=== PATIENT | female | born 1950 | race Caucasian/White ===

== ENCOUNTER 2016-07-10 05:04 | Inpatient (IN) | payer BC ==
--- NOTE | 2016-06-19 11:53 | History and Physical ---
History & Physical Date Jun 19, 2016. Chief Complaint Left Knee Pain History of Present Illness Sade is a pleasant 66-year-old female who presents for preoperative evaluation prior to a left knee replacement. Patient states that they have been having pain in this knee for many years now, which has gradually worsened, it has now gotten to the point it is affecting her daily activities including walking, standing, going up and down steps. Patient has tried and failed conservative measures including previous cortisone injection, viscosupplementation, bracing, physical therapy, and PO NSAIDs with no relief. At this point in time, patient has failed conservative measures and would like to proceed with a left knee replacement. Past Medical/Surgical History 1. hypertension 2. high cholesterol 3. Atrial Fibrillation 4. h/o mitral regurgitation 5. Diabetes PAST SURGICAL HISTORY 1. liver surgery 1998 2. right and left knee arthroscopies 2006 3. right total hip replacement 2010 Additional History Hypertension: Yes Bleeding Tendencies: No Infectious Diseases: No Allergies Coded Allergies: Penicillins (Verified Allergy, Severe, HIVES OVER ENTIRE BODY, 04/14/09) ENTIRE BODY Adhesives (Verified Allergy, Intermediate, HIVES TO ADHESIVE TAPE, 08/12/06) Clonidine (Verified Allergy, Intermediate, HAS ALLERGY TO "BP PATCH"--RXN = HIVES, 04/14/09) Cefazolin (Verified Allergy, Unknown, 04/14/09) Hydrocodone (Verified Adverse Reaction, Unknown, itching, 08/16/10) Home Medications Scheduled Aspirin (Aspirin Tab-Chewable *), 0 PO UD Calcium (Caltrate), 600 MG PO DAILY Digoxin (Lanoxin), 0.125 MG PO DAILY Ergocalciferol (Vitamin D), 800 INTER.UNIT PO DAILY Fish Oil ([place]-3), 1 CAP PO DAILY Insulin Detmir (Levemir), 28 SC HS Metoprolol Succinate (Toprolxl (Toprol-Xl), 200 MG PO DAILY Oxycodone/Acetaminophen 5MG/325MG (Percocet 5MG/325MG), 1-2 TABLETS PO Q4-6HR PRN Simvastatin (Zocor), 20 MG PO QPM Tolterodine Tartrate (Detrol La *), 4 MG PO PRN Valsartan/Hctz (Diovan Hct 80MG/12.5MG *), 2 TAB PO DAILY Verapamil (Calan), 120 MG PO DAILY Warfarin Sod (Coumadin *), 2 MG PO DAILY [viactiv], 0 PO DAILY [vitamin k], 0 PO UD Physical Examination Skin: warm/dry, no rash Eyes: normal inspection, EOMI, sclerae normal ENT: normal ENT inspection, pharynx normal Head: normocephalic, atraumatic Neck: supple, no adenopathy, trachea midline Respiratory/Chest: lungs clear, normal breath sounds, no respiratory distress Cardiovascular: regular rate, rhythm, no edema Addiitonal Comments: Left Knee Exam Knee ROM L * Active ROM - Flexion: 100 degrees, Extension: 5 degrees, Factors: pain, Description: Active painful ROM. Knee ROM R * Active ROM - Flexion: 100 degrees, Extension: 5 degrees, Factors: pain, Description: Active painful ROM. Strength LE Normal Strength Description - Normal lower extremity: Bilateral. Knee * Inspection - Gait: Limp. Alignment - Right: neutral, Left: neutral. Ecchymosis - Right: negative, Left: negative. Effusion - Right: mild, Left: mild. Swelling - Right: mild, Left: mild. Maximum tenderness - Right: Medial Joint Line, Left: Medial Joint Line. Patella exam - Crepitation - Right: mild, Left: mild. Patella position - Right: neutral, Left: neutral. Knee Normal Inspection - Atrophy - Right: Absent, Left: Absent. Skin - Right: Normal, Left: Normal. Patella exam - Apprehension - Right: Negative, Left: Negative. Q-angle - Right: Normal, Left: Normal. Posterior drawer - Right: Negative, Left: Negative. Anterior drawer - Right: Negative, Left: Negative. Valgus stress - Right: Negative. Varus stress - Right: Negative. Extensor lag - Right: Normal. Neurovascular LE Normal Neurovascular examination including reflexes, sensation , and pulses is within normal limits. Diagnosis Left Knee Osteoarthritis Past medical history as outlined above Plan of Treatment Further care discussed with patient and at this point in time has failed conservative measures and would like to proceed with a left total knee replacement. Plan on discharge will be home with home health physical therapy. DVT prophalaxis with TEDs, SCDs and will also place on aspirin 81 mg p.o. b.i.d. for a month postop. Patient will have follow up appointment in our office two weeks post op for staple/suture removal and re-evaluation. Patient otherwise has no other questions or concerns. Patient will require cardiac clearance prior to TKA
[2016-06-20 08:17] VITALS: BMI 32.0
--- NOTE | 2016-06-20 09:09 | PAT Medication Instructions ---
Service Date Jun 20, 2016. Current Home Medication List Dapagliflozin Propanediol (Farxiga), 5 MG PO QAM Digoxin (Lanoxin), 0.125 MG PO HS Insulin Detmir (Levemir), 60 UNITS SC HS Losartan Potassium (Cozaar), 50 MG PO HS Metformin Hcl (Glucophage), 500 MG PO QAM Metoprolol Succinate (Toprolxl (Toprol-Xl), 200 MG PO HS Simvastatin (Zocor), 40 MG PO HS Tramadol (Ultram), 50 MG PO Q8H PRN for Pain Verapamil (Calan), 240 MG PO HS Warfarin Sod (Coumadin *), 2.5 MG PO M,T,R,F,S,ROSAS Medication Instructions For Your Scheduled Surgery - Check with surgeon/cardiology/family doctor for instructions Warfarin Sod (Coumadin *), 2.5 MG PO M,T,R,F,S,ROSAS - Hold the following medications 48 hours prior to surgery: Metformin Hcl (Glucophage), 500 MG PO QAM - Hold the following medications the morning of surgery: Losartan Potassium (Cozaar), 50 MG PO HS Dapagliflozin Propanediol (Farxiga), 5 MG PO QAM - Take the following medications the morning of surgery with a sip of water: Tramadol (Ultram), 50 MG PO Q8H PRN for Pain (okay to take up to 4 hours prior to surgery if needed) - Take the following medications as scheduled the night before surgery: Simvastatin (Zocor), 40 MG PO HS Metoprolol Succinate (Toprolxl (Toprol-Xl), 200 MG PO HS Digoxin (Lanoxin), 0.125 MG PO HS Verapamil (Calan), 240 MG PO HS Insulin Detmir (Levemir), 60 UNITS SC HS Tramadol (Ultram), 50 MG PO Q8H PRN for Pain If you have any questions please call us at [phone] (Lana Veliz PA-C) or [phone] or [phone]
[2016-06-20 10:32] LABS: URINE APPEARANCE CLEAR (CLEAR); URINE BILIRUBIN NEG (NEG); URINE COLOR YELLOW; URINE NITRITE NEG (NEG); URINE SPECIFIC GRAVITY 1.025 (1.000-1.030); UROBILINOGEN NEG (NEG)
[2016-06-20 10:33] LABS: BASO % 0.3 %; BASO ABS # 0.03 K/uL (0-0.2); COMPLETE YES; EOS % 1.1 %; HEMATOCRIT 42.8 % (37-47); IG% 0.4 %; LYMPH % 27.2 %; MEAN CELL VOLUME 83.6 fL (80-100); MEAN CORPUSCULAR HEMOGLOBIN 28.5 pg (25-34); MEAN CORPUSCULAR HGB CONC 34.1 g/dl (32-36); MONO % 4.8 %; NEUT % 66.2 %; PLATELET COUNT 219 K/uL (130-400); RED BLOOD COUNT 5.12 M/uL (4.2-5.4)
[2016-06-20 10:45] LABS: MANUAL MICROSCOPIC REQUIRED? NO; REVIEW REQ? NO
[2016-06-20 10:50] LABS: INR 2.3 (0.9-1.1); PARTIAL THROMBOPLASTIN RATIO 1.4; PROTHROMBIN TIME (PATIENT) 25.1 SECONDS (9.0-12.0)
[2016-07-10] VITALS (9 sets, daily range): BP systolic 109–171; BP diastolic 60–88; PULSE 51–85; TEMP 36.4–36.5; O2SAT 95–98; Ht 160 cm; Wt 82.1 kg
[~2016-07-10] VITALS: Ht 160 cm; Wt 82.1 kg
[~2016-07-10 05:04] MED LIST: CMD2 PO; DAPA1TAB8 PO; DIGO0.122 PO; GLC/500 PO; INSUINJ12 SC; LOSA50TA6 PO; METO-649 PO; SIMV20TA2 PO; TRAM-10 PO; VERA120T15 PO
[2016-07-10] MEDS ORDERED: LACTATED RINGER'S 500 ML IV SCH (06:00)
[2016-07-10] MEDS ORDERED: GABAPENTIN 300 MG CAP PO SCH (06:00)
[2016-07-10] MEDS ORDERED: ACETAMINOPHEN 500 MG TAB PO SCH (06:00)
[2016-07-10] MEDS ORDERED: VANCOMYCIN INJ 1,250 MG in SODIUM CHLORIDE 0.9% 250ML 250 ML IV SCH (06:00)
[2016-07-10] MEDS ORDERED: LACTATED RINGER'S 1000ML IV SCH ×2 (06:00)
[2016-07-10] MEDS ORDERED: METOCLOPRAMIDE HCL 10 MG TAB PO SCH (06:00)
[2016-07-10] MEDS ORDERED: DEXAMETHASONE 4 MG TAB PO SCH (06:00)
[2016-07-10] MEDS ORDERED: FAMOTIDINE 20 MG TAB PO SCH (06:00)
[2016-07-10] MEDS ORDERED: CeleBREX 200 MG CAP PO SCH (06:00)
[2016-07-10] MEDS ORDERED: ROPIVACAINE 5MG/ML 30 ML 150 MG, BUPIVACAINE/EPINEPHR 0.5% MPF 30 ML, KETOROLAC TROMETH... INFIL SCH ×7 (06:00)
[2016-07-10 06:04] LABS: INR 1.3 (0.9-1.1); PARTIAL THROMBOPLASTIN RATIO 1.2; PROTHROMBIN TIME (PATIENT) 13.8 SECONDS (9.0-12.0)
[2016-07-10] MEDS ORDERED: BUPIVACAINE 0.5 % 5 MG/1 ML PF 10ML VIAL ONE (06:21)
[2016-07-10] MEDS ORDERED: DEXAMETHASONE SOD INJ 4 MG/ML VIAL ONE (06:21)
[2016-07-10] MEDS ORDERED: BUPIVACAINE/EPINEPHRINE 0.25% 1:200,000 30 ML VIAL ONE (06:21)
[2016-07-10] MEDS ORDERED: LIDOCAINE HCL 2% 2 ML VIAL (20MG/ML) ONE ×2 (06:22→07:48)
[2016-07-10] MEDS ORDERED: PROPOFOL IV EMULSION 10 MG/ML 20 ML VIAL IV ONE ×2 (06:22→07:48)
[2016-07-10] MEDS ORDERED: MIDAZOLAM HCL 1 MG/ML 2ML VIAL ONE ×2 (06:23→06:41)
[2016-07-10] MEDS ORDERED: FENTANYL CITRATE INJ 50 MCG/1 ML 2 ML VIAL ONE ×2 (06:23→06:41)
[2016-07-10] MEDS ORDERED: BACITRACIN 50000 UNIT VIAL ONE (06:33)
[2016-07-10] MEDS ORDERED: POVIDONE-IODINE OP SOLN 30 ML BTL ONE (06:33)
[2016-07-10] MEDS ORDERED: ORTHO JOINT ANESTHETIC ONE (06:33)
[2016-07-10] MEDS ORDERED: ONDANSETRON INJ 2 MG/ML 2 ML VIAL IV PRN ×2 (07:00→09:15)
[2016-07-10] MEDS ORDERED: EpHEDrine SULFATE INJ 50 MG/ML AMP IV PRN (07:00)
[2016-07-10] MEDS ORDERED: FENTANYL CITRATE INJ 50 MCG/1 ML 2 ML VIAL IV PRN (07:00)
[2016-07-10] MEDS ORDERED: ATROPINE SULFATE 0.1 MG/ML 5ML SYR IV PRN (07:00)
--- NOTE | 2016-07-10 07:08 | History & Physical Bridge Note ---
H&P Re-Evaluation Bridge Note: I have examined the patient, reviewed the History & Physical and in the interval since the performance of the History & Physical I have noted the following changes of clinical significance: No changes noted
[2016-07-10] MEDS ORDERED: EpHEDrine SULFATE 50MG/5ML SYR ONE (08:03)
--- NOTE | 2016-07-10 08:28 | [facility] Post Operative Brief Note ---
Immediate Operative Summary Operative Date July 10, 2016. Pre-Operative Diagnosis Left Knee Osteoarthritis Post-Operative Diagnosis Left Knee Osteoarthritis Procedure(s) Performed Left Total Knee Arthroplasty Surgeon Dr. Pat Agronomy Instructor Surgeon(s) Jag San Estimated Blood Loss 5ML Findings severe djd lt knee Specimens Permanent Specimen A: Left Knee bone and tissue Complication(s) None Disposition Recovery Room / PACU
--- NOTE | 2016-07-10 09:07 | OPERATIVE REPORT ---
DATE OF ADMISSION: 07/10/2016 PREOPERATIVE DIAGNOSIS: Severe end-stage tricompartmental degenerative joint disease, left knee. POSTOPERATIVE DIAGNOSIS: Severe end-stage tricompartmental degenerative joint disease, left knee. PROCEDURE: Left total knee arthroplasty utilizing Rick \T\ Nephew Journey II nonblock total knee arthroplasty size 3 femur, 3 tibia, 9 poly, and 29 oval patella. SURGEON: Dr. Fco Pat. ASSEMBLER MOVEMENT: Jag Silveira PA-C who was necessary for prepping, draping, retraction, wound closure of deep fascia, subcutaneous and skin and was necessary for the case. ESTIMATED BLOOD LOSS: 5 mL. COMPLICATIONS: None. TOURNIQUET TIME: 45 minutes. HISTORY OF PRESENT ILLNESS: The patient presents as a very pleasant 66-year-old white female with complaints of ongoing pain attributed to her left knee. She has been nonresponsive to conservative therapy including physical therapy, anti-inflammatories, relative rest, activity modification, injections including viscosupplementations as well as corticosteroids. She presents for left total knee arthroplasty after thorough discussion regarding risks and complications. DESCRIPTION OF PROCEDURE: The patient was properly prepped and draped in supine position for total knee arthroplasty after identifying the appropriate surgical site. An anterior midline incision was made through the subcutaneous tissues down to the region of the extensor mechanism. A medial parapatellar incision was subsequently made. Meticulous hemostasis was obtained and performed at all times. The patella having been subluxed lateralward, medial and lateral meniscal remnants were excised. The patellar cut was then initially made and was sized to the appropriate size. After subluxing the tibia forward the appropriate meniscal fragments having been removed the distal femur was then cut first utilizing a Rick and Nephew block. The distal femoral cuts and chamfer cuts were all made under direct visualization and the proximal tibial osteotomy cut was also made utilizing Rick and Nephew blocks and checked with an extramedullary guide. The appropriate trial components on the femur and tibia were placed. Appropriate trial spacers were used to check flexion and extension gaps. With flexion and extension gaps being equal, the components were then subsequently after thorough irrigation and debridement lavage components were then subsequently cemented in the following order: femur, tibia and patella. Exparel was used for intraoperative anesthesia, the medial parapatellar incision was closed utilizing #1 Vicryl, subQ was closed with 2-0 Vicryl, skin was closed with skin clips. A sterile compression dressing was placed. The patient was taken to recovery room in stable condition. Due to the complex nature of the procedure, the entire surgery was performed with the operational assistance of Jag Silveira PA-C. The administrative assistant front desk, under direct supervision, was involved in the actual performance of all aspects of the surgical procedure including hemostasis, tissue retraction and incision, instrument management, patient positioning, and wound closure. I attest to the content of the Intraoperative Record and any orders documented therein. Any exceptions are noted below. CYDNEY
[2016-07-10] MEDS ORDERED: MAGNESIUM HYDROXIDE SUSP 30 ML UDC PO PRN (09:15)
[2016-07-10] MEDS ORDERED: ALUMINUM/MAGNESIUM/SIMETH (MAALOX MAX) 30 ML UDC PO PRN (09:15)
[2016-07-10] MEDS ORDERED: MoRPHine SULFATE 2 MG/ML CARP IV PRN (09:15)
[2016-07-10] MEDS ORDERED: ZOLPIDEM TARTRATE 5 MG TAB PO PRN (09:15)
[2016-07-10] MEDS ORDERED: SOD PHOSPHATE/SOD BIPHOSPHATE ENEMA 132 ML BTL PR PRN (09:15)
[2016-07-10] MEDS ORDERED: BISACODYL 10 MG SUPP PR PRN (09:15)
--- NOTE | 2016-07-10 09:23 | Anesthesiology Progress Note ---
Anesthesia Post Op Note Date & Time July 10, 2016 at 09:23 Vital Signs Pain Intensity: 0 Vital Signs Past 12 Hours Date Time Temp Pulse Resp B/P Pulse Ox O2 Delivery O2 Flow Rate FiO2 07/10/16 09:14 36.2 63 12 121/70 97 Nasal Cannula 2 07/10/16 05:45 36.5 59 18 171/87 98 Room Air Notes Mental Status: alert / awake / arousable, participated in evaluation Pt Amnestic to Procedure: Yes Nausea / Vomiting: adequately controlled Pain: adequately controlled Airway Patency, RR, SpO2: stable & adequate BP & HR: stable & adequate Hydration State: stable & adequate Neuraxial Anesthesia: was administered, sensory block is resolving Anesthetic Complications: no major complications apparent
--- NOTE | 2016-07-10 09:52 | DIAGNOSTIC IMAGING REPORT ---
LEFT KNEE 1 OR 2 VIEWS ROUTINE CLINICAL HISTORY: AP/LATERAL IN PACU LEFT KNEE joint replacement COMPARISON: None. DISCUSSION: Anatomic alignment status post total left knee replacement. Good contact between prosthetic and underlying bone. Surgical drains are in position. IMPRESSION: Anatomic alignment status post total left knee replacement. Electronically signed by: Jag Pimentel M.D. 07/10/2016 9:51 AM Dictated Date/Time: 07/10/2016 9:50 AM
[2016-07-10] MEDS ORDERED: MoRPHine SULFATE 10 MG/ML CARP/VIAL IV PRN (11:00)
[2016-07-10] MEDS ORDERED: PHARMACY GLYCEMIC MGMT CONSULT PRN (11:00)
--- NOTE | 2016-07-10 11:12 | Pharmacy Progress Note ---
Glycemic Control Intl Consult Date of Service July 10, 2016. Scope Glycemic Pharmacist consulted by Jag Silveira PA-C on 07/10/16 for glycemic control and to write orders per [facility] inpatient glycemic control protocol Objective Weight (Kilograms): 82.100 Accuchecks BSG (last 24hrs): Test 07/10/16 05:43 07/10/16 09:17 Bedside Glucose 182 mg/dl (70-90) 189 mg/dl (70-90) Recent Pertinent Medications Outpatient Anti-diabetic Regimen: * Levemir 60 units HS * Metformin 500 mg PO QAM * A1c unknown Risk Factors for Insulin Resistance: * Steroids: Preop PO Dexamethasone X 1+ Intraop IV Dexamethasone X 1 * Infection: Pre/Post op ABX * Recent Surgery: POD #0 * Diet: DM2 Assessment & Plan ASSESSMENT: * 66 yo diabetic F admitted s/p L knee surgery, POD #0 * Pt is maintained on oral antidiabetic agents + Levemir as an outpatient * Oral agents are not recommended for inpatient use d/t drug interactions, changing PO intake, and difficulty titrating for acute hyper/hypoglycemia. ADA recommends re-initiating outpatient oral agents 1-2 days prior to discharge if/ when appropriate if they were held on admission. * Will hold oral agents for admission and utilize SQ basal bolus insulin regimen based on outpatient Levemir dose * This evaluation is also in line with weight-based dosing/stress of 3 which is common for steroid use * A1c unknown so unable to assess outpatient control, order for tomorrow AM * ADA & AACE recommend a goal blood sugar range 140-180 mg/dl for the majority of critically ill & non-critically ill patients. However, more stringent targets may be selected in individual cases. Tighten goal range to 110 - 150 mg/ dL to facilitate better wound healing. PLAN FOR INPATIENT GLYCEMIC CONTROL: * Hold outpatient oral diabetes medications * Basal insulin with Levemir 40 units SQ HS * In case this is a low evaluation, add 00,04 checks * Correctional Insulin with NOVOLOG per scale ACHS or Q6hrs while NPO + 00,04 checks * Goal Range: Low 110 mg/dL - High 150 mg/dL * Correction Factor: 20 mg/dL/unit * Nutritional / Prandial insulin per carb ratio of 1 unit per 7 grams CHO consumed * A1c added with AM labs * Please note that the plan above was derived based on current level of insulin resistance and hospital stress. These recommendations are appropriate for inpatient admission only. Plan of care upon discharge will need to be reassessed to avoid potential outpatient hypo/hyperglycemia. Thank you.
[2016-07-10] MEDS: SODIUM CHLORIDE 0.9% 1000ML 1,000 ML IV SCH ×2 (11:14→20:53)
[2016-07-10] MEDS ORDERED: GLUCOSE 10 TABS/TUBE PO PRN (11:15)
[2016-07-10] MEDS ORDERED: GLUCOSE 40% GEL 15 GM TUBE PO PRN (11:15)
[2016-07-10] MEDS ORDERED: GLUCAGON FOR INJ 1 MG VIAL SQ PRN (11:15)
[2016-07-10] MEDS ORDERED: DEXTROSE 50% 50 ML SYR IV PRN (11:15)
[2016-07-10] MEDS: INSULIN ASPART 100 UNITS/ML 3 ML PEN SC SCH ×4 (12:24→23:55)
[2016-07-10] MEDS: CLINDAMYCIN IV 600 MG in DEXTROSE 5% ADD-VANTAGE 50ML 50 ML IV SCH ×2 (13:29→21:39)
[2016-07-10] MEDS ORDERED: WARFARIN SOD 2.5 MG TAB PO ONE (16:00)
[2016-07-10] MEDS: ACETAMINOPHEN 500 MG TAB PO SCH ×2 (16:32→23:49)
[2016-07-10] MEDS: TRAMADOL HCL 50 MG TAB PO PRN ×2 (18:44→22:49)
[2016-07-10] MEDS: SIMVASTATIN 20 MG TAB PO SCH (20:46)
[2016-07-10] MEDS: LOSARTAN POTASSIUM 50 MG TAB PO SCH (20:46)
[2016-07-10] MEDS: DIGOXIN 0.125 MG TAB PO SCH (20:47)
[2016-07-10] MEDS: SENNA 8.6 MG TAB PO SCH (20:47)
[2016-07-10] MEDS: DOCUSATE SODIUM 100 MG CAP PO SCH (20:47)
[2016-07-10] MEDS: INSULIN DETEMIR FLEXPEN/FLEX TOUCH 100 UNITS/ML 3ML SC SCH (20:51)
[2016-07-10] MEDS ORDERED: METOPROLOL SUCC 50MG EXT REL TAB PO SCH (21:00)
[2016-07-10] MEDS ORDERED: NURSING VERBAL MED ORDER ONE (21:15)
[2016-07-10] MEDS: METOPROLOL SUCC 50MG EXT REL TAB PO SCH (21:39)
[2016-07-11 03:30] VITALS: BP 131/60; PULSE 79; TEMP 36.8; O2SAT 96
[2016-07-11] MEDS: INSULIN ASPART 100 UNITS/ML 3 ML PEN SC SCH ×5 (04:09→21:00)
[2016-07-11] MEDS: TRAMADOL HCL 50 MG TAB PO PRN ×4 (05:03→21:28)
[2016-07-11] MEDS: SODIUM CHLORIDE 0.9% 1000ML 1,000 ML IV SCH (06:16)
[2016-07-11 06:18] LABS: MEAN CELL VOLUME 85.2 fL (80-100); MEAN CORPUSCULAR HEMOGLOBIN 28.6 pg (25-34); MEAN CORPUSCULAR HGB CONC 33.5 g/dl (32-36); MEAN PLATELET VOLUME 11.7 fL (7.4-10.4); PLATELET COUNT 186 K/uL (130-400); RED BLOOD COUNT 3.99 M/uL (4.2-5.4); WHITE BLOOD COUNT 18.65 K/uL (4.8-10.8)
[2016-07-11 06:38] LABS: INR 1.2 (0.9-1.1); PROTHROMBIN TIME (PATIENT) 12.9 SECONDS (9.0-12.0)
[2016-07-11 06:50] LABS: BUN/CREATININE RATIO 18.7 (10-20); CALCIUM 8.3 mg/dl (8.5-10.1); CREATININE 0.82 mg/dl (0.60-1.20); POTASSIUM 3.9 mmol/L (3.5-5.1)
[2016-07-11 07:04] LABS: ESTIMATED AVERAGE GLUCOSE 171 mg/dl; HA1C FLAG Normal (Normal)
[2016-07-11 07:15] VITALS: BP 134/77; PULSE 77; TEMP 36.5; O2SAT 96
--- NOTE | 2016-07-11 07:59 | Orthopedic Progress Note ---
Orthopedic Progress Note Date of Service July 11, 2016. Subjective Post OP Day: 1 Reports: feeling well (Per pt and NS, pt unable to bear weight on leg without knee buckling. Pt denies a fall since surgery) Objective N/V intact, dressing C/D/I (Hemovac in place), toes mobile Date Time Temp Pulse Resp B/P Pulse Ox O2 Delivery O2 Flow Rate FiO2 07/11/16 03:30 36.8 79 16 131/60 96 Room Air 07/10/16 23:10 36.4 85 16 141/88 97 Room Air 07/10/16 22:25 Room Air 07/10/16 20:47 79 07/10/16 20:40 36.4 79 16 146/81 97 07/10/16 16:30 Nasal Cannula 2.0 07/10/16 15:28 36.4 63 16 126/78 97 Nasal Cannula 1.5 07/10/16 13:30 65 16 109/60 96 07/10/16 12:00 60 16 124/73 98 07/10/16 11:00 54 15 142/82 97 07/10/16 10:30 51 15 131/85 98 07/10/16 10:00 36.4 60 16 110/70 95 Nasal Cannula 2.0 07/10/16 10:00 95 Nasal Cannula 2.0 07/10/16 10:00 95 Nasal Cannula 2.0 07/10/16 09:40 36.2 65 16 119/69 97 Nasal Cannula 2 07/10/16 09:30 61 14 117/73 97 Nasal Cannula 2 07/10/16 09:20 62 14 131/76 97 Nasal Cannula 2 07/10/16 09:14 36.2 63 12 121/70 97 Nasal Cannula 2 Laboratory Results 24 Hours: Test 07/11/16 05:25 Hematocrit 34.0 % Hemoglobin 11.4 g/dL Prothromb Time International Ratio 1.2 Prothrombin Time 12.9 SECONDS Assessment & Plan Assessment: 66 yo female POD #1 s/p left TKA, difficulty bearing weight without the knee buckling Plan: 1. Med management 2. DVT prophylaxis- resume regular Coumadin use, TEDs, SCDs 3. PT/OT- will order knee immobilizer to see if that improves weightbearing, if continued trouble will order xray 4. D/C planning- home w/ HH
[2016-07-11] MEDS: ACETAMINOPHEN 500 MG TAB PO SCH ×3 (08:17→23:37)
[2016-07-11] MEDS: MULTIVITAMIN TAB PO SCH (08:17)
[2016-07-11] MEDS: DOCUSATE SODIUM 100 MG CAP PO SCH ×2 (08:17→20:55)
[2016-07-11] MEDS: PANTOprazole SOD 40 MG TAB PO SCH (08:17)
[2016-07-11] MEDS ORDERED: CeleBREX 200 MG CAP PO SCH (09:00)
--- NOTE | 2016-07-11 10:38 | Pharmacy Progress Note ---
Glycemic Control: Progress Nt Date of Service July 11, 2016. Scope Glycemic Pharmacist consulted by Jag Silveira PA-C on 07/10/16 for glycemic control and to write orders per [facility] inpatient glycemic control protocol. Objective Accuchecks BSG (last 24hrs): Test 07/10/16 12:02 07/10/16 17:11 07/10/16 20:34 07/10/16 23:49 Bedside Glucose 214 mg/dl (70-90) 260 mg/dl (70-90) 270 mg/dl (70-90) 245 mg/dl (70-90) Test 07/11/16 04:07 07/11/16 05:25 07/11/16 08:16 Bedside Glucose 188 mg/dl (70-90) 191 mg/dl (70-90) Random Glucose 186 mg/dl (70-99) Laboratory Data (last 24hrs) Test 07/11/16 05:25 Anion Gap 9.0 mmol/L BUN/Creatinine Ratio 18.7 Blood Urea Nitrogen 15 mg/dl Creatinine 0.82 mg/dl Hemoglobin A1c 7.6 % Potassium Level 3.9 mmol/L Sodium Level 140 mmol/L White Blood Count 18.65 K/uL HbA1c: Test 07/11/16 05:25 Hemoglobin A1c 7.6 % (4.5-5.6) H Recent Pertinent Medications Outpatient Anti-diabetic Regimen: * Levemir 60 units HS * Metformin 500 mg PO QAM Risk Factors for Insulin Resistance: * Steroids: Preop PO Dexamethasone X 1+ Intraop IV Dexamethasone X 1 * Recent Surgery: POD #1 * Diet: DM2 Assessment & Plan ASSESSMENT: * 66 yo diabetic F admitted s/p L knee surgery, POD #1 * Pt is maintained on oral antidiabetic agents + Levemir as an outpatient * Oral agents are not recommended for inpatient use d/t drug interactions, changing PO intake, and difficulty titrating for acute hyper/hypoglycemia. ADA recommends re-initiating outpatient oral agents 1-2 days prior to discharge if/ when appropriate if they were held on admission. * A1c 7.6% from this morning indicative of adequate glycemic control as outpatient * Continue to hold oral agents for admission and utilize SQ basal bolus insulin regimen based on outpatient Levemir dose * Effects from dexamethasone should start to dissipate over the next 24 hours but patient's BSGs still above goal range. Tighten Novolog further and reassess in the AM. * ADA & AACE recommend a goal blood sugar range 140-180 mg/dl for the majority of critically ill & non-critically ill patients. However, more stringent targets may be selected in individual cases. Tighten goal range to 110 - 150 mg/ dL to facilitate better wound healing. PLAN FOR INPATIENT GLYCEMIC CONTROL: * Hold outpatient oral diabetes medications * Continue Basal insulin with Levemir 40 units SQ HS * Correctional Insulin with NOVOLOG per scale ACHS * Goal Range: Low 110 mg/dL - High 150 mg/dL * Correction Factor: 15 mg/dL/unit * Nutritional / Prandial insulin per carb ratio of 1 unit per 6 grams CHO consumed * A1c added to D/C instructions * Please note that the plan above was derived based on current level of insulin resistance and hospital stress. These recommendations are appropriate for inpatient admission only. Plan of care upon discharge will need to be reassessed to avoid potential outpatient hypo/hyperglycemia. Thank you.
--- NOTE | 2016-07-11 10:39 | Anesthesiology Progress Note ---
Anesthesia Post Op Note Date & Time July 11, 2016 at 10:39 Vital Signs Pain Intensity: 0.0 Vital Signs Past 12 Hours Date Time Temp Pulse Resp B/P Pulse Ox O2 Delivery O2 Flow Rate FiO2 07/11/16 07:20 Room Air 07/11/16 07:15 36.5 77 16 134/77 96 Room Air 07/11/16 03:30 36.8 79 16 131/60 96 Room Air 07/10/16 23:10 36.4 85 16 141/88 97 Room Air Notes Neuraxial Anesthesia: sensory block resolved
[2016-07-11 12:55] VITALS: BP 112/67; PULSE 87; TEMP 36.5; O2SAT 100
--- NOTE | 2016-07-11 13:29 | Discharge Instructions ---
Discharge Instructions Date of Service July 11, 2016. Admission Reason for Admission: Left Knee Osteoarthritis Discharge Discharge Diagnosis / Problem: Left Total Knee Replacement Discharge Goals Goal(s): Decrease discomfort, Improve function, Increase independence Activity Recommendations Activity Limitations: as noted below Weightbearing Status: Left weightbearing (as tolerated) . Instructions / Follow-Up Instructions / Follow-Up ACTIVITY RECOMMENDATIONS: SELF CARE INSTRUCTIONS AFTER TOTAL KNEE REPLACEMENT A. You may need to continue a physical therapy program after discharge from the hospital. There are several options available to you. Your doctor will assist you in selecting the best one for you. 1. An out-patient facility 2 to 3 times a week for therapy or home therapy. 2. Continue working on all exercises taught to you in the hospital. Your goals should be to increase bending of your knee to 90 degrees and beyond and to fully straighten your knee. B. You may progress at your own pace from walking with a walker or crutches to a cane; then to no assistive devices. C. Make walking a part of your daily routine. Be up as much as comfortable with rest periods throughout the day. Rest with leg elevation is very important. Use the ice wrap frequently for the first 3-4 weeks. D. There are no restrictions on activities. You may ride in a car, shop, participate in roller inspector and mender and all social activities. E. Wear the long elastic stockings (ROHINI hose) 20 hours a day for 2 weeks after surgery. They can be removed several times a day for laundering and for a bath. F. You may shower, no tub baths until cleared by your doctor. SPECIAL CARE INSTRUCTIONS: VERY IMPORTANT TO READ AND REVIEW A. There are a few signs you need to watch for after you are home. Call [facility] [place] if you notice any of the followin. Increased severe knee pain. Some pain is expected especially when you exercise. 2. Increased swelling in your leg or knee; pain or swelling of the calf muscle in either lower leg. 3. Any fluid drainage from the incision. 4. Shortness of breath or chest pain. B. Please call [facility] at if you have any concerns or questions about your operation or recovery. The doctor or his nurse will return your call promptly. C. You must take antibiotics before dental work, bladder, bowel or other surgery. Your doctor will provide you with a permanent care to carry describing this precaution. IMPORTANT: * REMEMBER TO TAKE ASPIRIN, 81 MG, TWICE DAILY FOR 4 WEEKS UNLESS OTHERWISE DIRECTED. THIS IS YOUR BLOOD THINNER. * HIGH RISK PATIENTS MAY BE PRESCRIBED A STRONGER BLOOD THINNER. THIS WILL BE PROVIDED AT DISCHARGE. * CALL IF INCREASED PAIN, REDNESS, DRAINAGE OR FEVER GREATER THAT 101. * WEAR ROHINI HOSE 20 HOURS PER DAY FOR 2 WEEKS. * DERMABOND Prineo- This is a mesh tape dressing that is covered with glue. It should remain in place until the incision is properly healed, usually 10-14 days. This dressing is designed to naturally slough off. You may trim the excess mesh tape as it peels off. Incision may be briefly wet in a shower. Dry immediately by blotting with a clean, dry towel. Do not bath or swim until instructed by your doctor. Do not scratch, rub, or pick at the dressing. Do not apply any topical ointments or lotions until dressing is completely removed and/or instructed by your doctor. There may be a small piece of suture material at one end of your incision. Do not pull or trim this. If it is bothersome or catching on clothing, you may cover it with a band-aid. FOLLOW UP VISIT: If appointment is not already scheduled: Please call [facility] [place] to make a follow-up appointment for 2 weeks after your surgery at . Current Hospital Diet Patient's current hospital diet: Diabetes Type 2 Diet Discharge Diet Recommended Diet: Diabetes Type 2 Diet Procedures Procedures Performed: Left Total Knee Arthroplasty Pending Studies Studies pending at discharge: no Laboratory Results Hemoglobin A1c Test 07/11/16 05:25 Range/Units Estimated Average Glucose 171 mg/dl Hemoglobin A1c 7.6 H 4.5-5.6 % Medical Emergencies . Who to Call and When: Medical Emergencies: If at any time you feel your situation is an emergency, please call 911 immediately. . Non-Emergent Contact Non-Emergency issues call your: Primary Care Provider, Surgeon . "Provider Documentation" section prepared by Jag Silveira. . VTE Core Measure Inpt VTE Proph given/why not?: Warfarin (Coumadin), Neela Huang, SCD's [place] Drug Monitoring Program Search Results: patient reviewed within database, no issues identified
[2016-07-11] MEDS: KETOROLAC TROMETHAMINE 15 MG/ML VIAL IV PRN (14:59)
[2016-07-11 15:06] VITALS: BP 146/84; PULSE 61; TEMP 36.5; O2SAT 97
[2016-07-11] MEDS: MoRPHine SULFATE 4 MG/ML 1 ML CARP\\VIAL IV PRN ×2 (15:30→21:53)
[2016-07-11 15:45] VITALS: O2SAT 97
[2016-07-11] MEDS ORDERED: WARFARIN SOD 5 MG TAB PO SCH (16:00)
[2016-07-11] MEDS: SENNA 8.6 MG TAB PO SCH (20:55)
[2016-07-11] MEDS: SIMVASTATIN 20 MG TAB PO SCH (20:55)
[2016-07-11] MEDS: METOPROLOL SUCC 50MG EXT REL TAB PO SCH (20:56)
[2016-07-11] MEDS: DIGOXIN 0.125 MG TAB PO SCH (20:58)
[2016-07-11] MEDS: LOSARTAN POTASSIUM 50 MG TAB PO SCH (20:58)
[2016-07-11] MEDS: INSULIN DETEMIR FLEXPEN/FLEX TOUCH 100 UNITS/ML 3ML SC SCH (21:00)
[2016-07-11 23:01] VITALS: BP 155/84; PULSE 72; TEMP 36.7; O2SAT 97
[2016-07-12] MEDS: TRAMADOL HCL 50 MG TAB PO PRN ×4 (01:23→19:54)
[2016-07-12 06:02] VITALS: BP 153/86; PULSE 60
[2016-07-12 06:48] LABS: INR 1.6 (0.9-1.1); PROTHROMBIN TIME (PATIENT) 17.6 SECONDS (9.0-12.0)
--- NOTE | 2016-07-12 07:07 | Orthopedic Progress Note ---
Orthopedic Progress Note Date of Service July 12, 2016. Subjective Post OP Day: 2 Reports: pain controlled w PO medications, Denies: SOB, calf pain, chest pain, complaints, light headedness, nausea / vomiting Additional Notes: states she had episode last evening she woke up and didn't now where she was, attributes this to the morphine. currently doing well Objective calves soft nontender, N/V intact, capillary refill less than 2 sec., incision C /D/I, A&O x3, toes mobile top part of prinea dressing is off, reinforced with steri strips. no drainage, no erythema. expected bruising noted along medial knee joint. Date Time Temp Pulse Resp B/P Pulse Ox O2 Delivery O2 Flow Rate FiO2 07/12/16 06:02 60 153/86 07/11/16 23:30 Room Air 07/11/16 23:01 36.7 72 14 155/84 97 Room Air 07/11/16 20:58 66 07/11/16 15:45 97 Room Air 07/11/16 15:06 36.5 61 17 146/84 97 Room Air 07/11/16 12:55 36.5 87 16 112/67 100 Room Air 07/11/16 07:20 Room Air 07/11/16 07:15 36.5 77 16 134/77 96 Room Air Laboratory Results 24 Hours: Test 07/12/16 05:40 Prothromb Time International Ratio 1.6 Prothrombin Time 17.6 SECONDS Assessment & Plan Assessment: 66 yo female POD #2 s/p left TKA, difficulty bearing weight without the knee buckling, was using immobilizer yesterday while ambulating, seems a little better during evening, will trial without it today during PT Plan: 1. Med management 2. DVT prophylaxis- resume regular Coumadin use, TEDs, SCDs 3. PT/OT 4. D/C planning- home w/ HH Discharge Planning Discharge Planning: home with home health DVT Prophylaxis: TEDs, SCDs, ASA Therapy: Physical Therapy
[2016-07-12 07:18] VITALS: BP 150/81; PULSE 62; TEMP 36.5; O2SAT 99
[2016-07-12] MEDS: ACETAMINOPHEN 500 MG TAB PO SCH ×3 (08:00→23:13)
[2016-07-12] MEDS: MULTIVITAMIN TAB PO SCH (08:47)
[2016-07-12] MEDS: PANTOprazole SOD 40 MG TAB PO SCH (08:47)
[2016-07-12] MEDS: DOCUSATE SODIUM 100 MG CAP PO SCH ×2 (08:47→20:48)
[2016-07-12] MEDS: INSULIN ASPART 100 UNITS/ML 3 ML PEN SC SCH ×4 (08:52→20:56)
[2016-07-12] MEDS: KETOROLAC TROMETHAMINE 15 MG/ML VIAL IV PRN ×2 (08:53→16:40)
--- NOTE | 2016-07-12 09:43 | Pharmacy Progress Note ---
Glycemic Control: Progress Nt Date of Service July 12, 2016. Scope Glycemic Pharmacist consulted by Jag Silveira PA-C on 07/10/16 for glycemic control and to write orders per [facility] inpatient glycemic control protocol. Objective Accuchecks BSG (last 24hrs): Test 07/11/16 12:10 07/11/16 17:03 07/11/16 20:41 07/12/16 08:21 Bedside Glucose 233 mg/dl (70-90) 201 mg/dl (70-90) 148 mg/dl (70-90) 188 mg/dl (70-90) HbA1c: Test 07/11/16 05:25 Hemoglobin A1c 7.6 % (4.5-5.6) H Recent Pertinent Medications Outpatient Anti-diabetic Regimen: * Levemir 60 units SQ HS * Metformin 500mg PO QAM * Farxiga 5mg PO QAM The patient is currently receiving: * Basal insulin: Levemir 40 units every 24 hours given at bedtime * Correctional Insulin: Novolog Correction per scale ACHS Goal Range: Low 110 mg/dL - High 150 mg/dL Correction Factor: 15 mg/dL/unit * Prandial insulin: Per carb ratio of 1 unit per 6 grams CHO consumed * Oral Agents: On hold for admission Risk Factors for Insulin Resistance: * Steroids pre-op and intraop * Recent Surgery * Diet Assessment & Plan ASSESSMENT: * Pt is maintained on oral antidiabetic agents + Levemir as an outpatient * Oral agents are not recommended for inpatient use d/t drug interactions, changing PO intake, and difficulty titrating for acute hyper/hypoglycemia. ADA recommends re-initiating outpatient oral agents 1-2 days prior to discharge if/ when appropriate if they were held on admission. * Continue to hold oral agents for admission and utilize SQ basal bolus insulin regimen based on outpatient Levemir dose. Titrate dosing daily based on BSG trends * Effects from dexamethasone should be minimal at this point * AM fasting BSG is above goal --> current basal insulin dosing is less than ordered outpatient dosing, will increase dose and continue to titrate to achieve an AM fasting BSG < 140mg/dl * Post-prandial BSGs elevated and rise throughout the day --> will tighten CR for most prandial coverage * ADA & AACE recommend a goal blood sugar range 140-180 mg/dl for the majority of critically ill & non-critically ill patients. However, more stringent targets may be selected in individual cases. Will utilize more stringent goal of 110-140mg/dl based on patient age & comorbidities. Additionally, tighter glycemic control is warranted to facilitate healing post-operatively. PLAN FOR INPATIENT GLYCEMIC CONTROL: * Hold outpatient oral diabetes medications * INCREASE Basal insulin with Levemir 50 units SQ HS (outpatient dosing is 60 units) * NOVOLOG per scale ACHS * LOWER Goal Range: Low 110 mg/dL - High 140 mg/dL * Correction Factor: 15 mg/dL/unit * TIGHTEN Nutritional / Prandial insulin per carb ratio of 1 unit per 5 grams CHO consumed * A1c added to D/C instructions to be communicated to PCP RECOMMENDATIONS FOR DISCHARGE: * A1c = 7.6% from 07/11/16 indicative of adequate glycemic control as outpatient. May continue previous outpatient regimen at discharge. * Please note that the plan above was derived based on current level of insulin resistance and hospital stress. These recommendations are appropriate for inpatient admission only. Plan of care upon discharge will need to be reassessed to avoid potential outpatient hypo/hyperglycemia. Thank you.
[2016-07-12 15:41] VITALS: BP 155/83; PULSE 65; TEMP 37.1; O2SAT 98
[2016-07-12] MEDS ORDERED: WARFARIN SOD 2 MG TAB PO SCH (16:00)
[2016-07-12] MEDS: MoRPHine SULFATE 4 MG/ML 1 ML CARP\\VIAL IV PRN (17:46)
[2016-07-12 20:45] VITALS: BP 123/69; PULSE 66; O2SAT 97
[2016-07-12] MEDS: LOSARTAN POTASSIUM 50 MG TAB PO SCH (20:48)
[2016-07-12] MEDS: DIGOXIN 0.125 MG TAB PO SCH (20:49)
[2016-07-12] MEDS: SENNA 8.6 MG TAB PO SCH (20:50)
[2016-07-12] MEDS: SIMVASTATIN 20 MG TAB PO SCH (20:51)
[2016-07-12] MEDS: METOPROLOL SUCC 50MG EXT REL TAB PO SCH (20:51)
[2016-07-12] MEDS ORDERED: INSULIN DETEMIR FLEXPEN/FLEX TOUCH 100 UNITS/ML 3ML SC SCH (21:00)
[2016-07-12] MEDS ORDERED: VERAPAMIL HCL 240 MG TABCR PO SCH (21:00)
[2016-07-12 23:08] VITALS: BP 123/74; PULSE 72; TEMP 36.4; O2SAT 96
[2016-07-13] MEDS: TRAMADOL HCL 50 MG TAB PO PRN ×2 (05:34→12:14)
[2016-07-13 06:30] VITALS: BP 145/78; PULSE 58; TEMP 36.4; O2SAT 96
[2016-07-13 06:32] LABS: INR 1.7 (0.9-1.1); PROTHROMBIN TIME (PATIENT) 18.7 SECONDS (9.0-12.0)
--- NOTE | 2016-07-13 07:29 | Orthopedic Progress Note ---
Orthopedic Progress Note Date of Service July 13, 2016. Subjective Post OP Day: 3 Reports: feeling well, pain controlled w PO medications, Denies: SOB, chest pain , complaints, light headedness, nausea / vomiting Objective calves soft nontender, N/V intact, dressing C/D/I, A&O x3, toes mobile Date Time Temp Pulse Resp B/P Pulse Ox O2 Delivery O2 Flow Rate FiO2 07/13/16 06:30 36.4 58 14 145/78 96 Room Air 07/12/16 23:08 36.4 72 15 123/74 96 Room Air 07/12/16 20:49 65 07/12/16 20:45 66 123/69 97 Room Air 07/12/16 19:54 Room Air 07/12/16 15:45 Room Air 07/12/16 15:41 37.1 65 16 155/83 98 Room Air 07/12/16 07:30 Room Air Laboratory Results 24 Hours: Test 07/13/16 05:19 Prothromb Time International Ratio 1.7 Prothrombin Time 18.7 SECONDS Assessment & Plan Assessment: 66 yo female POD #3 s/p left TKA feeling well today with some pain in her left knee. She did well yesterday with PT Plan: 1. Med management 2. DVT prophylaxis- resume regular Coumadin use, TEDs, SCDs 3. PT/OT 4. D/C planning- home w/ HH Discharge Planning Discharge Planning: home with home health DVT Prophylaxis: TEDs, SCDs, ASA Therapy: Physical Therapy
[2016-07-13] MEDS ORDERED: OXYSR10 PO (07:33)
[2016-07-13] MEDS ORDERED: RXC5 PO ×2 (07:33→07:48)
[2016-07-13 08:16] VITALS: BP 135/82; PULSE 66; TEMP 36.5; O2SAT 98
[2016-07-13] MEDS: ACETAMINOPHEN 500 MG TAB PO SCH (08:20)
[2016-07-13] MEDS: MULTIVITAMIN TAB PO SCH (08:21)
[2016-07-13] MEDS: DOCUSATE SODIUM 100 MG CAP PO SCH (08:21)
[2016-07-13] MEDS: PANTOprazole SOD 40 MG TAB PO SCH (08:21)
[2016-07-13] MEDS: INSULIN ASPART 100 UNITS/ML 3 ML PEN SC SCH ×2 (08:26→12:50)
[2016-07-13] MEDS ORDERED: METFORMIN HCL 500 MG TABCR PO SCH (08:30)
[2016-07-13 08:47] VITALS: O2SAT 98
--- NOTE | 2016-07-13 09:32 | Pharmacy Progress Note ---
Glycemic Control: Progress Nt Date of Service July 13, 2016. Scope Glycemic Pharmacist consulted by Jag Silveira PA-C on 07/10/16 for glycemic control and to write orders per [facility] inpatient glycemic control protocol. Objective Accuchecks BSG (last 24hrs): Test 07/12/16 12:02 07/12/16 16:54 07/12/16 20:46 07/13/16 06:35 Bedside Glucose 173 mg/dl (70-90) 131 mg/dl (70-90) 141 mg/dl (70-90) 198 mg/dl (70-90) HbA1c: Test 07/11/16 05:25 Hemoglobin A1c 7.6 % (4.5-5.6) H Recent Pertinent Medications Outpatient Anti-diabetic Regimen: * Levemir 60 units SQ HS * Metformin 500mg PO QAM * Farxiga 5mg PO QAM The patient is currently receiving: * Basal insulin: Levemir 50 units every 24 hours given at bedtime * Correctional Insulin: Novolog Correction per scale ACHS Goal Range: Low 110 mg/dL - High 150 mg/dL Correction Factor: 15 mg/dL/unit * Prandial insulin: Per carb ratio of 1 unit per 5 grams CHO consumed * Oral Agents: On hold for admission Risk Factors for Insulin Resistance: * Steroids pre-op and intraop --> effects should be minimal at this point * Recent Surgery * Diet Assessment & Plan ASSESSMENT: Initial: * Pt is maintained on oral antidiabetic agents + Levemir as an outpatient * Oral agents are not recommended for inpatient use d/t drug interactions, changing PO intake, and difficulty titrating for acute hyper/hypoglycemia. ADA recommends re-initiating outpatient oral agents 1-2 days prior to discharge if/ when appropriate if they were held on admission. * Oral agents held on admission and pt initiated on SQ basal bolus insulin regimen based on outpatient Levemir dose. Titrating dosing daily based on BSG trends * ADA & AACE recommend a goal blood sugar range 140-180 mg/dl for the majority of critically ill & non-critically ill patients. However, more stringent targets may be selected in individual cases. Will utilize more stringent goal of 110-140mg/dl based on patient age & comorbidities. Additionally, tighter glycemic control is warranted to facilitate healing post-operatively. 07/13/16: * AM fasting BSG is above goal at 198mg/dl --> increase basal insulin dosing back to outpatient dosing of Levemir 60 units SQ HS * Pt to d/c home today --> OK to resume oral antidiabetic agents * Continue bolus insulin per weight based parameters while Farxiga (not stocked/ non-formulary) on hold for admission and for any stress hyperglycemia secondary to surgery. PLAN FOR INPATIENT GLYCEMIC CONTROL: Pt to d/c home today. Begin transition to outpatient. * Resume Metformin today. Pt may resume Farxiga when d/c (not-stocked at [facility]) * INCREASE Basal insulin with Levemir 60 units SQ HS (this is outpatient dosing is 60 units) * CONTINUE NovoLog per scale ACHS * Goal Range: Low 110 mg/dL - High 140 mg/dL * Correction Factor: 15 mg/dL/unit * Nutritional / Prandial insulin per carb ratio of 1 unit per 5 grams CHO consumed * A1c added to D/C instructions to be communicated to PCP RECOMMENDATIONS FOR DISCHARGE: * A1c = 7.6% from 07/11/16 indicative of adequate glycemic control as outpatient. May continue previous outpatient regimen at discharge. * Please note that the plan above was derived based on current level of insulin resistance and hospital stress. These recommendations are appropriate for inpatient admission only. Plan of care upon discharge will need to be reassessed to avoid potential outpatient hypo/hyperglycemia. Thank you.
[2016-07-13 10:07] VITALS: TEMP 36.5; O2SAT 98
[2016-07-13 11:25] VITALS: BP 141/86; PULSE 63; O2SAT 97
--- NOTE | 2016-07-13 20:46 | Discharge Summary ---
Orthopedic Discharge Summary Admission Date/Reason July 10, 2016 at 06:10 Left Knee Osteoarthritis. Discharge Date/Disposition July 13, 2016 Home with services Diagnosis Principal Diagnosis: Left knee osteoarthritis Procedure(s) Performed Left TKA Consultations NONE Medication Reconciliation New Medications: Oxycodone HCl (Oxycontin) 10 Mg Tabcr 10 MG PO BID, #20 Oxycodone HCl (Oxycodone HCl) 5 Mg Tab 1-2 TABS PO Q4H, #60 Continued Medications: Dapagliflozin Propanediol (Farxiga) 10 Mg Tab 5 MG PO QAM Digoxin (Lanoxin) 0.125 Mg Tab 0.125 MG PO HS, 0 Refills Insulin Detmir (Levemir) Inj 60 UNITS SC HS, 0 Refills Losartan Potassium (Cozaar) 50 Mg Tab 50 MG PO HS, TAB Metformin Hcl (Glucophage) 500 Mg Tab 500 MG PO QAM, TAB Metoprolol Succinate (Toprolxl (Toprol-Xl) 200 Mg Tabcr 200 MG PO HS, 0 Refills Simvastatin (Zocor) 20 Mg Tab 40 MG PO HS, 0 Refills Verapamil (Calan) 120 Mg Tab 240 MG PO HS, 0 Refills Warfarin Sod (Coumadin *) 2 Mg Tab 2.5 MG PO M,T,R,F,S,ROSAS, 0 Refills NO WARFARIN ON WEDNESDAYS Discontinued Medications: Tramadol (Ultram) 50 Mg Tab 50 MG PO Q8H PRN for Pain, TAB Admission Physical Exam As per Admitting History & Physical. Hospital Course Patient was a same day admission after undergoing a successful left TKA. she tolerated the procedure well. Post-operatively, her activity was progressed and well tolerated. On POD #1 she had increased pain and hypertension which improved over the next 24 hours. Please refer to daily progress notes and PT notes for complete details. After exam on 07/13/16, patient felt to be stable for discharge home with home health PT. Patient will f/u in the office in 2 weeks for further evaluation including x-rays and incision check, sooner if having any issues or concerns. Below are pertinent labs/studies during their hospital stay: Last Resulted CBC 07/11/16 05:25 Last Resulted BMP 07/11/16 05:25 Last Vital Signs Documentation Date Time Temp Pulse Resp B/P Pulse Ox O2 Delivery O2 Flow Rate FiO2 07/13/16 11:25 63 97 07/13/16 10:07 36.5 16 Room Air 07/13/16 08:16 135/82 07/10/16 16:30 2.0 Discharge Instructions Please refer to the electronic Patient Visit Report (Discharge Instructions) for additional information.
[2016-07-13] MEDS ORDERED: INSULIN DETEMIR FLEXPEN/FLEX TOUCH 100 UNITS/ML 3ML SC SCH (21:00)
== END 2016-07-13 13:12 | disposition home health service (06) | DRG 470 ==
LOC: ENRESERVDT → ENRESERVTM → C.ACU 05:04 → C.3E 06:10
PROVIDERS: ADMIT Orthopaedic Surgery; ATTEND Orthopaedic Surgery
PROC: 0SRD0J9 Replacement of Left Knee Joint with Synthetic Substitute, Cemented, Open Approach (ICD-10-PCS; principal; 2016-07-10 07:00)
DX: M17.12 Unilateral primary osteoarthritis, left knee (principal); I10 Essential (primary) hypertension; E78.00 Pure hypercholesterolemia, unspecified; I48.91 Unspecified atrial fibrillation; E11.9 Type 2 diabetes mellitus without complications; R01.1 Cardiac murmur, unspecified; M54.5 Low back pain; M54.2 Cervicalgia; E66.9 Obesity, unspecified; I34.0 Nonrheumatic mitral (valve) insufficiency; Z96.641 Presence of right artificial hip joint; Z79.82 Long term (current) use of aspirin; Z68.32 Body mass index [BMI] 32.0-32.9, adult; Z79.891 Long term (current) use of opiate analgesic; Z79.01 Long term (current) use of anticoagulants; Z79.84 Long term (current) use of oral hypoglycemic drugs; Z79.899 Other long term (current) drug therapy